=== PATIENT | male | born 1955 | race Caucasian/White ===

== ENCOUNTER 2020-11-13 08:36 | Outpatient (CLI) | payer MEDICARE, OTHER, SELFPAY ==
--- NOTE | 2020-11-13 08:46 | XR_ITS ---
WS: [id number] KUB, AP view, 11/13/2020 Clinical Data: stones Comparison: KUB, 03/02/2018. Findings: No abnormal intraabdominal masses are seen. There is no dilatated small bowel or evidence of obstruct ion. The calcifications overlying the left kidney are noted. The inferior calcification is now 1.4 cm. Fec al material and gas obscures detail over the right kidney. There is a phlebolith on the right side of the true pelvis. XR/XR KUB [id number] Impression: Left renal calcifications with the largest measuring 1.4 cm.
== END 2020-11-13 08:37 | disposition home or self-care (01) ==
PROVIDERS: PCP Electrodiagnostic Medicine; Visit Provider Urology
DX: N20.0 Calculus of kidney (principal)
CPT/HCPCS: 74018; 81003

== ENCOUNTER 2020-11-28 07:39 | Outpatient (CLI) | payer MEDICARE, OTHER, SELFPAY ==
--- NOTE | 2020-11-28 08:00 | XR_ITS ---
WS: [id number] KUB, 11/28/2020 Clinical Data: KIDNEY STONE Comparison: KUB, 11/13/2020. Findings: No abnormal intraabdominal masses are seen. There is no dilatated small bowel or evidence of obstruct ion. There are calcifications overlying the left kidney, the largest in the inferior pole measures 1.4 cm. The right kidney is obscured by fecal material and colon gas. There are calcifications in the true p bol[place] including one on the left now measuring 0.7 cm There are calcifications overlying the spleen. XR/XR KUB [id number] Impression: 1. No change in left renal calcifications. 2. 0.7 cm calcification in the left side of the true pelvis.
== END 2020-11-28 07:40 | disposition home or self-care (01) ==
LOC: RAD 07:44
PROVIDERS: PCP Electrodiagnostic Medicine; Visit Provider Urology
DX: N20.0 Calculus of kidney (principal)
CPT/HCPCS: 74018; 81003; 87635

== ENCOUNTER 2020-12-02 12:49 | Day surgery (SDC) | payer MEDICARE, OTHER, SELFPAY ==
[2020-11-29 15:31] VITALS: BMI 38.2
[2020-12-02] VITALS (8 sets, daily range): BP systolic 143–175; BP diastolic 88–110; PULSE 81–95; RESP 16–20; TEMP 36.3–36.6; O2SAT 94–96
--- NOTE | 2020-12-02 13:01 | XRR_ITS ---
PROCEDURE INFORMATION: Exam: XR Abdomen Exam date and time: 12/02/2020 1:01 PM Age: 65 years old Clinical indication: Screening exam; Other: Preop left eswl, epidural steroids with lidocaine? TECHNIQUE: Imaging protocol: XR of the abdomen. Views: Frontal supine view of the abdomen. 1 View. COMPARISON: CR XR KUB [id number] 11/28/2020 7:59 AM FINDINGS: Gastrointestinal tract: Normal. No bowel dilation. Vasculature: One or more calcified pelvic phleboliths. One or more calcified pelvic phleboliths. Bones/joints: Mild to moderate lumbar spondylosis. XR/XR KUB [id number] IMPRESSION: No acute findings.
[2020-12-02] MEDS: sodium chloride 0.9% 1,000 ML 30 ML IV (13:47)
--- NOTE | 2020-12-02 14:13 | W.PM.OPSUD ---
Surgery/Procedure H&P Update DATE OF PROCEDURE: December 02, 2020 DATE H&P PERFORMED: 11/28/20 H&P UPDATE INFORMATION: I have reviewed H&P completed within last 30 days, I have examined patient prior to procedure, No changes to prior documentation and H&P is in [facility] [place] [facility] EMR on date indicated CHANGES TO PREVIOUS DOCUMENTATION: Stone is slightly more distal but readily identifiable. PREOP DIAGNOSIS: Refractory large left distal ureteral stone PLANNED PROCEDURE: Operation Date: 12/02/20 14:45 Proposed Procedures p Cystoscopy 15304 62823 n20.0(Not Applicable) - Amadeo Banuelos MD s right ESWL(Right) - Amadeo Banuelos MD s Ureteral Stent Placement(Not Applicable) - Amadeo Banuelos MD
--- NOTE | 2020-12-02 14:36 | ANES.PREANE2 ---
Pre-Anesthetic Assessment Pre-Anesthetic Assessment: Height/Weight: Height 1.85 m Weight 131.542 kg Temp Pulse Resp BP Pulse Ox 97.4 F L 89 18 175/110 96 12/02/20 13:32 12/02/20 13:32 12/02/20 13:32 12/02/20 13:32 12/02/20 13:32 Preop Diagnosis: Refractory large left distal ureteral stone Proposed Procedure: Operation Date: 12/02/20 14:45 Proposed Procedures p Cystoscopy [id number] 52306 n20.0(Not Applicable) - Amadeo Banuelos MD s right ESWL(Right) - Amadeo Banuelos MD s Ureteral Stent Placement(Not Applicable) - Amadeo Banuelos MD Was Beta Eddie taken within 24 hours: N/A Was Clonidine taken within 24 hours: N/A Last intake: Intake Last Liquid Date 12/02/20 Last Liquid Time 09:00 Last Solid Date 11/30/20 Last Solid Time 22:00 Social: Social History: No alcohol and No tobacco Exam: Pre-Anes Outpt Exam: alert, oriented x 3, clear to auscultation bilaterally and regular rate & rhythm Airway: Submandibular: WNL Cervical ROM: WNL MP: 2 Dentition: Full Additional comments: slade CV/HEM: CV/HEM: HTN Metabolic: Metabolic: Morbid obesity Musc/skel: Musc/skel: Lower Back Pain Comments: chronic pain/opioid Anesthetic Plan: ASA status: 3 Anesthesia: General Risk of > 500 ml blood loss (7ml/kg in children): No Meds/Allergies Current Medications: Current Medications Generic Name Dose Route Start Last Admin Trade Name Freq PRN Reason Stop Dose Admin Sodium Chloride 1,000 mls @ 30 ml s/hr 12/02/20 13:15 12/02/20 13:47 Sodium Chloride 0.9% IV 12/03/20 13:14 30 mls/hr .Q24H ARINA Administration PFSH Anesthesia PFSH: Medical History Calculus of kidney Chronic prostatitis Surgical History H/O adenoidectomy History of appendectomy Hx of colonoscopy with polypectomy Hx of tonsillectomy S/P extracorporeal shock wave therapy 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
--- NOTE | 2020-12-02 15:17 | P.OP_ITS ---
Operative Report Date of procedure: December 02, 2020 Pre-op Diagnosis: Refractory large left distal ureteral stone Post-op diagnosis: same Procedure Done: 1. Left distal ureteral extracorporeal shockwave lithotripsy Anesthesia: General Condition: stable Disposition: PACU Brief History: Amy is a very pleasant 65-year-old white male with a complex history of stones recently identified as having a large left distal ureteral stone in addition to a left lower pole stone. He elected conservative management initially but the stone failed to pass and is admitted now for outpatient ESWL possible stent Procedure: After routine preoperative evaluation examination and obtaining of informed consent he was taken to the operating suite on 12/02/2020 where general anesthesia was administered without difficulty after appropriate timeout was performed, SCDs confirmed to be functioning, preoperative antibiotics administered, beta-guillaume protocol confirmed. Positioned on the Dornier unit in supine position paying careful attention to avoiding pressure points. Shock head was positioned anteriorly. The stone was identified by use of biplanar fluoroscopy. Shockwave was initiated at an intensity of 1 advancement to an intensity of 4. Initial rate was 70. The stone started showing change early. Rate was increased to 90 after change was noted. A total of about 2200 shocks were administered. The decision was made to place a stent due to the bulk of the stone. He was then repositioned in dorsolithotomy position. Prepped and draped in usual sterile fashion pain careful attention to avoiding pressure points. 21 Slovak cystoscope with 30 degree lens was attempted to be passive but he required distal urethral dilation up to 24 Slovak sounds. Scope was then passed without difficulty into the bladder. There were some fragments already in the bladder but there were multiple fragments at the left ureteral orifice. It was decided to facilitate passage of the stone with grasping forceps. Several of these fragments were removed through the cystoscope with 3 Slovak grasping forceps but some were just inside and for that reason a offset semirigid ureteroscope was used to remove the remaining fragments. No further fragmentation was required. The ureter was carefully inspected and is felt to be dilated enough to reduce the risk of reobstruction if without stent. Therefore no stent was left indwelling. Was awakened in the operating room and returned to the recovery room in stable condition. PLANS: 1. Anticipate discharge from outpatient surgery 2. Follow-up in 3 months with KUB
--- NOTE | 2020-12-02 17:46 | ANE.PACU2 ---
Inpatient post-anesthesia follow up: Airway intact: Yes Vital signs: Temperature 98 F Pulse Rate 88 Respiratory Rate 16 Blood Pressure 161/98 Pulse Oximetry 96 Oxygen Delivery Me thod Room Air Oxygen Flow Rate 6 Fraction of Inspir ed Oxygen Hydration adequate: Yes Nausea and vomiting: No Pain level: 2 Mental status: Baseline
== END 2020-12-02 17:35 | disposition home or self-care (01) ==
PROVIDERS: PCP Electrodiagnostic Medicine; Visit Provider Urology
PROC: 0TJB8ZZ Inspection of Bladder, Via Natural or Artificial Opening Endoscopic (ICD-10-PCS; CPT 52000; principal; 2020-12-02 14:35)
PROC: (CPT 50590; 2020-12-02 14:35)
DX: N20.1 Calculus of ureter (principal); I10 Essential (primary) hypertension; E66.01 Morbid (severe) obesity due to excess calories; Z68.38 Body mass index [BMI] 38.0-38.9, adult; Z79.891 Long term (current) use of opiate analgesic; Z87.891 Personal history of nicotine dependence
CPT/HCPCS: 50590; 52352; 74018; 82365; 88300; J1100; J2405; J2704; J3010; J7030

== ENCOUNTER 2021-03-04 07:31 | Outpatient (CLI) | payer MEDICARE, OTHER, SELFPAY ==
--- NOTE | 2021-03-04 07:38 | XR_ITS ---
WS: [id number] Exam: XR KUB [id number] Date/Time of Exam: 03/04/2021 7:40 AM Reason For Exam: post op No bowel obstruction or free air. Calcifications superimpose the lower pole the left kidney apparentl y representing known renal stones. No sign of organ enlargement. Degenerative change of the lower lum bar spine and hips. XR/XR KUB [id number] IMPRESSION: 1. Calcifications superimposing the left kidney apparently representing known r enal stones. 2. No acute abdominal finding.
== END 2021-03-04 07:32 | disposition home or self-care (01) ==
LOC: RAD 07:36
PROVIDERS: PCP Electrodiagnostic Medicine; Visit Provider Urology
DX: N20.1 Calculus of ureter (principal); N20.0 Calculus of kidney; N41.1 Chronic prostatitis
CPT/HCPCS: 74018; 81003

== ENCOUNTER 2021-09-02 07:00 | Outpatient (CLI) | payer MEDICARE, OTHER, SELFPAY ==
--- NOTE | 2021-09-02 07:30 | XR_ITS ---
WS: [id number] Exam: XR KUB [id number] Date/Time of Exam: 09/02/2021 7:12 AM Reason For Exam: STONES Comparison 03/04/2021. No bowel obstruction or free air. Again noted are calcifications superimposing the left kidney appare ntly representing known renal stones. No sign of organ enlargement. Bony changes in the pelvis and ma y represent diffuse idiopathic skeletal hyperostosis. DJD of both hips. XR/XR KUB [id number] IMPRESSION: 1. Calcifications superimposing the left kidney apparently representing known r enal stones. 2. No acute abdominal process.
== END 2021-09-02 07:01 | disposition home or self-care (01) ==
LOC: RAD 07:01
PROVIDERS: PCP Electrodiagnostic Medicine; Visit Provider Urology
DX: N20.0 Calculus of kidney (principal)
CPT/HCPCS: 74018; 81003

== ENCOUNTER 2022-08-26 07:10 | Outpatient (CLI) | payer MEDICARE, OTHER, SELFPAY | END 2022-08-26 07:11 | disposition home or self-care (01) | PROVIDERS: PCP Electrodiagnostic Medicine; Visit Provider Urology | DX: Z12.5 Encounter for screening for malignant neoplasm of prostate (principal) | CPT/HCPCS: 36415; 84153 ==

== ENCOUNTER 2022-09-01 07:01 | Outpatient (CLI) | payer MEDICARE, OTHER, SELFPAY ==
--- NOTE | 2022-09-01 07:20 | XRR_ITS ---
PROCEDURE INFORMATION: Exam: XR Abdomen Exam date and time: 09/01/2022 7:32 AM Age: 66 years old Clinical indication: Pain and condition or disease; Kidney or ureter condition; Calculus (stone) in ureter; Other: Left flank pain; Prior surgery; Surgery type: Appendectomy, lithotripsies; Additional info: Kidney stone, kub @ ozh 09/01/22 @ 0715 appointment to follow TECHNIQUE: Imaging protocol: Radiologic exam of the abdomen. Views: Frontal supine view of the abdomen. 1 View. COMPARISON: CR XR KUB [id number] 09/02/2021 7:11 AM FINDINGS: Gastrointestinal tract: Normal. No bowel dilation. Organs: There is a calcified urinary tract stone lower pole collecting system left kidney 14 mm x 12 mm. This finding was present on prior examination and appears similar. There is a calcified caliceal stone in the upper pole collecting system of the left kidney measuring 7.8 mm x 7.2 mm. This finding was also present on prior examination and appears similar Bones/joints: Unremarkable. XR/XR KUB [id number] IMPRESSION: 1. There are 2 nonobstructing caliceal stones in the left kidney as noted 2. Negative right kidney
== END 2022-09-01 07:02 | disposition home or self-care (01) ==
LOC: RAD 07:05
PROVIDERS: PCP Electrodiagnostic Medicine; Visit Provider Urology
DX: N20.0 Calculus of kidney (principal); Z12.5 Encounter for screening for malignant neoplasm of prostate; Z80.42 Family history of malignant neoplasm of prostate; N41.1 Chronic prostatitis
CPT/HCPCS: 74018; 99213

== ENCOUNTER 2023-10-06 11:25 | Outpatient (CLI) | payer MEDICARE, OTHER, SELFPAY ==
--- NOTE | 2023-10-06 11:31 | USCV_ITS ---
Amy Hoang Age: 67 Gender: M : 1955 Exam Date: 10/06/2023 11:37 Ordering Phys: Waylon Mccoy DO Technologist: Exam Location: [facility] [place] Indication: afib sob BP: / HR: 102 Rhythm: Sinus Technical Quality: Adequate MEASUREMENTS (Male / Female) Normal Values 2D ECHO LV Diastolic Diameter PLAX 4.9 cm 4.2 - 5.9 / 3.9 - 5.3 cm IVS Diastolic Thickness 1.6 cm 0.6 - 1.0 / 0.6 - 0.9 cm IVS Systolic Thickness 2.0 cm LVPW Diastolic Thickness 1.6 cm 0.6 - 1.0 / 0.6 - 0.9 cm LVPW Systolic Thickness 2.1 cm LVOT Diameter 2.5 cm LV Ejection Fraction 2D Teich 57.0 % LV Ejection Fraction MOD 2C 70.3 % LV Ejection Fraction 2C AL 71.0 % LA Diameter 5.4 cm RA Systolic Volume 4C AL 205.1 ml RA Systolic Volume 4C MOD 195.2 ml M-MODE LA Ao Ratio MM 1.4 AV Cusp Separation MM 2.7 cm DOPPLER AV Peak Velocity 115.0 cm/s LVOT Peak Velocity 80.0 cm/s AV Area Cont Eq vti 4.1 cm squared AV Area Cont Eq pk 3.3 cm squared MV Peak Velocity 119.0 cm/s MV Area PHT 6.7 cm squared Mitral E to A Ratio 1.6 TV Peak Velocity 180.0 cm/s TR Peak Velocity 250.0 cm/s TR Peak Gradient 25.0 mmHg Right Atrial Pressure 3.0 mmHg Pulmonary Artery Systolic Pressu 28.0 mmHg FINDINGS Left Ventricle Normal left ventricular size and systolic function, EF 71% . No regional wall motion abnormalities. Right Ventricle The right ventricle is normal in size and function. Right Atrium Possibly of normal size Left Atrium Moderately increased left atrial size. Mitral Valve Mild mitral valve regurgitation. Mild mitral annular calcification. Moderate mitral valve regurgitation. Aortic Valve Thickened aortic valve. Tricuspid Valve Trace to mild tricuspid valve regurgitation. Pulmonic Valve No gross abnormalities noted Pericardium Normal pericardium without effusion. Aorta Normal ascending aorta dimension. IVC The inferior vena cava appears normal. CONCLUSIONS Normal left ventricular size and systolic function, EF 71% . No regional wall motion abnormalities. Moderately increased left atrial size. Mild mitral valve regurgitation. Mild mitral annular calcification. Moderate mitral valve regurgitation. Thickened aortic valve. Trace to mild tricuspid valve regurgitation. There is no pericardial effusion. There are no intracardiac masses. Dr Trish Torres MD FAC (Electronically Signed) Final Date: 06 Oct 2023 22:06 S
== END 2023-10-06 11:26 | disposition home or self-care (01) ==
LOC: RAD 11:25
PROVIDERS: PCP Electrodiagnostic Medicine; Visit Provider Electrodiagnostic Medicine
DX: R01.1 Cardiac murmur, unspecified (principal); I34.0 Nonrheumatic mitral (valve) insufficiency
CPT/HCPCS: 93306

== ENCOUNTER 2023-11-11 09:30 | Outpatient (CLI) | payer MEDICARE, OTHER, SELFPAY ==
--- NOTE | 2023-11-11 09:43 | XR_ITS ---
WS: [id number] XR abdomen min 2V [id number] REASON FOR EXAM: Calculus FINDINGS: Upper and lower pole left renal calculi are unchanged unchanged compared to 09/01/2022. No right intrarenal calculi are identified. No ureteral calculi or bladder calculi are noted. Bowel gas pattern is unremarkable. Moderate degenerative spondylosis in the lower lumbar spine. Mild to moderate osteoarthritis in the r ight hip. 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 XR/XR abdomen min 2V [id number] IMPRESSION: Stable left renal calculi. 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
== END 2023-11-11 09:31 | disposition home or self-care (01) ==
LOC: RAD 09:31
PROVIDERS: PCP Electrodiagnostic Medicine; Visit Provider Urology
DX: N20.0 Calculus of kidney (principal); M16.12 Unilateral primary osteoarthritis, left hip; M47.896 Other spondylosis, lumbar region
CPT/HCPCS: 74019

== ENCOUNTER 2024-04-19 13:50 | Outpatient (CLI) | payer MEDICARE, OTHER, SELFPAY | END 2024-04-19 13:51 | disposition home or self-care (01) | LOC: SLEEP 13:52 | PROVIDERS: PCP Electrodiagnostic Medicine; Visit Provider Electrodiagnostic Medicine | DX: G47.33 Obstructive sleep apnea (adult) (pediatric) (principal); G47.36 Sleep related hypoventilation in conditions classified elsewhere | CPT/HCPCS: G0399 ==